=== PATIENT | male | born 1975 | race Hispanic/Latino ===

== ENCOUNTER 2021-03-18 15:04 | Emergency (ER) | payer OTHER, SELFPAY ==
[2021-03-18 15:05] VITALS: BP 147/92; PULSE 90; RESP 18; TEMP 37.1; O2SAT 95; BMI 28.1
--- NOTE | 2021-03-18 15:10 | ED.RN ---
called [facility] in for drug screen
[2021-03-18 16:47] VITALS: RESP 18
--- NOTE | 2021-03-18 19:52 | EDS_ITS ---
HPI History of Present Illness Chief Complaint: Head Injury Narrative Narrative: 46-year-old male with no reported medical history presenting for evaluation of head injury. Patient speaks [place] only and digital content coordinator was used. He states that a heavy chain fell on his head on the left upper part. He denies LOC. He has a superficial abrasion which is no longer bleeding. He initially had a headache which is resolved. He has no dizziness, lightheadedness, nausea, vomiting, visual changes, unstable gait. Patient denies neck pain. He has no other injuries. PFSH PFSH Allergy/AdvReac Type Severity Reaction Status Date / Time No Known Allergies Allergy Verified 03/18/21 15:07 Social History Smoking Status: Never smoker ROS ROS ED Constitutional Constitutional ED: Denies chills or fever(s) Eyes Eyes: Denies blurry vision or diplopia ENT ENT ED: Denies rhinorrhea or sore throat Cardiovascular Cardiovascular: Denies chest pain or palpitations Respiratory/Chest Respiratory/Chest: Denies cough or dyspnea Gastrointestinal Gastrointestinal: Denies abdominal pain or nausea Genitourinary Genitourinary ED: Denies dysuria or hematuria Musculoskeletal Musculoskeletal: Reports arthralgias; Denies myalgias Integumentary Reports other Details: Superficial abrasion to the left upper scalp Neurologic Neurologic: Denies headache(s) or paresthesias EXAM Physical Exam Const Vital Signs: 03/18/21 15:05 03/18/21 15:41 03/18/21 16:47 Temperature 98.7 F Temperature Source Temporal Pulse Rate 90 Respiratory Rate 18 18 Respiratory Effort Normal Blood Pressure 147/92 H Blood Pressure Mean 110 Pulse Ox 95 Oxygen Delivery Method Room Air Positive well nourished General Appearance ED: NAD HEENT Reports normocephalic and TM's clear HEENT Narrative: Superficial abrasion left upper scalp just left of the vertex. No active bleeding. No skull deformity. No hemotympanum. No mastoid tenderness. No bruising around the eyes. Tympanic Membrane ED: Yes TM's clear Eyes PERRL and EOMs intact bilaterally Neck no lymphadenopathy and supple General: Negative for tenderness Resp normal respiratory effort and clear to auscultation bilaterally Cardio regular rate and regular rhythm Neuro oriented x3, CN's II-XII intact bilaterally and no sensory deficits noted Sensorium / Orientation: awake and alert Motor Exam: strength 5/5 throughout Psych mental status grossly normal Skin Skin Narrative: Superficial abrasion described above Rashes: no rashes MDM MDM MDM Narrative Medical decision making narrative: Patient is a superficial abrasion to the upper scalp. The wound was cleaned and dressed. Patient has no red flag signs or symptoms I do not believe he needs any imaging at this time. Patient states he has no symptoms currently and does not need work restrictions. He is discharged home in stable condition. Impression: 1. Closed head injury 2. Superficial abrasion to scalp Discharge Plan Triage Chief Complaint: Head Injury ED Provider: Ady Velazquez Dx/Rx/DC Orders Instructions: ED Abrasion, ED Head Injury (Adult) Primary Care Provider: Care Physician,No Primary Referrals: NOT,DEFINED [NON-STAFF] - Clinic,NOW [NON-STAFF] - 3-5 Days Disposition Disposition: Home, Self Care Discharge Date/Time: 03/18/21 16:56
== END 2021-03-18 16:56 | disposition home or self-care (01) ==
LOC: ED 16:52
PROVIDERS: Emergency Provider Student in an Organized Health Care Education/Training Program; Visit Provider Student in an Organized Health Care Education/Training Program
DX: S00.01XA Abrasion of scalp, initial encounter (principal); W20.8XXA Other cause of strike by thrown, projected or falling object, initial encounter; Y99.0 Civilian activity done for income or pay
CPT/HCPCS: 99282

== ENCOUNTER → 2022-12-20 | Outpatient (CLI) | payer OTHER, SELFPAY ==
--- NOTE | 2022-12-20 09:36 | RAD_ITS ---
STUDY: X-RAY - LEFT HAND, ATTENTION THIRD FINGER REASON FOR EXAM: Male, 47 years old. Injury TECHNIQUE: 3 view(s) of the finger were obtained. COMPARISON: None. FINDINGS: Normal metacarpal head. Normal metacarpophalangeal joint. Normal proximal phalanx. Old avulsion fracture at the base of middle phalanx. Normal distal phalanx. Normal proximal interphalangeal joint. Fusion of the distal interphalangeal joint. Soft tissue swelling. RAD/Finger(s) Min 2 Views IMPRESSION: Soft tissue swelling. Fusion of the distal interphalangeal joint. Old avulsion fracture at the base of the middle phalanx of the third digit. Electronically Signed: Brayan Gutierrez MD at 10:08 EST ,
== END | disposition home or self-care (01) ==
PROVIDERS: Referring Provider Physician Assistant; Visit Provider Physician Assistant
DX: S69.92XA Unspecified injury of left wrist, hand and finger(s), initial encounter (principal); X58.XXXA Exposure to other specified factors, initial encounter
CPT/HCPCS: 73140

== ENCOUNTER → 2023-06-11 | Outpatient (CLI) | payer OTHER, SELFPAY ==
--- NOTE | 2023-06-11 09:06 | RAD_ITS ---
STUDY: X-RAY - LEFT FOOT CLINICAL: Male, 48 years old. Pain TECHNIQUE: 3 view(s) of the foot. COMPARISON: None. FINDINGS: There is a plantar calcaneal spur. Normal visualized subtalar, talonavicular, calcaneocuboid, tarsal and tarsometatarsal articulations. Normal metatarsi. Normal metatarsophalangeal joint of the great toe. Normal tibial and fibular sesamoid bones. Normal interphalangeal joint of the great toe. Normal phalanges of the great toe. Normal second through fifth metatarsophalangeal joints. Normal interphalangeal joints and phalanges of the lesser toes. Shrapnel is seen within the soft tissues overlying the second and third metatarsals. RAD/Foot min 3 Views IMPRESSION: Small plantar spur. Shrapnel is seen within the soft tissues overlying the second and third metatarsals. Electronically Signed: Brayan Gutierrez MD at 9:54 EDT ,
--- NOTE | 2023-06-11 09:10 | RAD_ITS ---
STUDY: X-RAY - LEFT ANKLE REASON FOR EXAM: Male, 48 years old. Injury TECHNIQUE: 3 view(s) of the ankle. COMPARISON: None. FINDINGS: Normal visualized distal tibia and fibula. I suspect a nondisplaced transverse fracture of the lateral malleolus. Normal tibiotalar articulation and ankle mortise. Normal visualized talus and calcaneus. The visualized subtalar, talonavicular, calcaneocuboid and tarsal articulations are normal. Lateral soft tissue swelling. RAD/Ankle min 3 Views IMPRESSION: I suspect a nondisplaced transverse fracture of the lateral malleolus with overlying soft tissue swelling. Electronically Signed: Brayan Gutierrez MD at 9:56 EDT ,
== END | disposition home or self-care (01) ==
LOC: MTRAD 09:05
PROVIDERS: Referring Provider Physician Assistant; Visit Provider Physician Assistant
DX: M25.572 Pain in left ankle and joints of left foot (principal); M79.672 Pain in left foot
CPT/HCPCS: 73610; 73630